=== PATIENT | male | born 1965 | race Caucasian/White ===

== ENCOUNTER 2019-10-01 02:43 | Emergency (ER) | payer OTHER ==
[2019-10-01 02:58] VITALS: BP 148/90; PULSE 94; TEMP 98.9; BMI 22.9
[2019-10-01] MEDS ORDERED: chlordiazePOXIDE HCL 25 MG CAPSULE PO ONE (03:01)
[2019-10-01] MEDS ORDERED: chlordiazePOXIDE HCL 25 MG CAPSULE ONE (03:05)
[2019-10-01 04:09] LABS: HEMATOCRIT 32.7 % (35.4-49); HEMOGLOBIN 11.1 GM/dL (11.7-16.9); MCH 35.8 pg (25.7-33.7); MCHC 34.1 g/dl (32.0-35.9); MEAN PLT VOLUME 8.1 fl (7.5-11.1); PLATELET COUNT 255 K/MM3 (134-434); RBC 3.11 M/mm3 (4.00-5.60); WHITE BLOOD COUNT 5.9 K/mm3 (4.0-10.0)
--- NOTE | 2019-10-01 04:45 | PDOC ---
Documentation entered by Juan Guzman SCRIBE, acting as scribe for Alexandria Goldsmith DO. Alexandria Goldsmith DO: This documentation has been prepared by the Megan baird Nirvannie, SCRIBE, under my direction and personally reviewed by me in its entirety. I confirm that the documentation accurately reflects all work, treatment, procedures, and medical decision making performed by me. History of Present Illness - General Stated Complaint: TRACH PROBLEM Time Seen by Provider: 10/01/19 02:48 History Source: Patient - History of Present Illness Initial Comments: 10/01/19 03:23 The patient is a 53 year old male, with a significant past medical history of unknown cancer (s/p tracheostomy), alcohol abuse, Hepatitis C, depression, bipolar disorder, who presents to the emergency department with 3 days of a dislodged tracheostomy tube. As per patient, he accidentally coughed up his tracheostomy tube 3 days ago. Patient presented to detox prior to his arrival but, was found to have a dislodged trach, prompting his arrival to the ED. Patients last drink was earlier today. As per patients oncologist office, while his tracheostomy is in place he requires significant suctioning. He denies any recent fevers, chills, headache or dizziness. He denies any recent chest pain. History is limited secondary to the patients difficulty speaking. Allergies: fish derived, iodine, shellfish derived, seafood Past History - Past Medical History Allergies/Adverse Reactions: Allergies Allergy/AdvReac Type Severity Reaction Status Date / Time fish derived Allergy Severe Difficulty Verified 10/01/19 02:53 Breathing iodine Allergy Severe Difficulty Verified 10/01/19 02:53 Breathing shellfish derived Allergy Severe Difficulty Verified 10/01/19 02:53 Breathing seafood Allergy Severe Difficulty Uncoded 10/01/19 02:53 Breathing Home Medications: Ambulatory Orders Lamotrigine [Lamictal] 100 mg PO BID #60 tablet 09/08/13 Albuterol Sulfate Inhaler - [Ventolin HFA Inhaler -] 2 inh IH Q4H PRN #1 inh 01/17 Budesonide/Formeterol Fumarate [SYMBICORT 80/4.5mcg -] 2 inh IH BID #0 inhaler 09/11/13 Quetiapine Fumarate [Seroquel -] 300 mg PO HS #0 tablet 09/11/13 Lamotrigine [LaMICtal -] 100 mg PO BID #60 tablet 03/21/14 Quetiapine Fumarate [Seroquel -] 300 mg PO HS #30 tablet 03/21/14 Zolpidem Tartrate [Ambien] 10 mg PO HS #30 tablet 03/23/14 Nicotine Inhaler [Nicotrol Inhaler -] 10 mg IH Q2H PRN #30 cartridge 03/24/14 Anemia: No Asthma: No Cancer: No Cardiac Disorders: No CVA: No COPD: No CHF: No Dementia: No Diabetes: No GI Disorders: No Disorders: No HTN: No Hypercholesterolemia: No Kidney Stones: No Liver Disease: Yes Seizures: No Thyroid Disease: No - Surgical History Abdominal Surgery: No Appendectomy: No Cardiac Surgery: No Cholecystectomy: No Lung Surgery: No Neurologic Surgery: No Orthopedic Surgery: No - Reproductive History Testicular Surgery: No - Psycho Social/Smoking Cessation Hx Smoking History: Current every day smoker Have you smoked in the past 12 months: Yes Number of Cigarettes Smoked Daily: 20 Cigars Per Day: 0 'Breaking Loose' booklet given: 09/07/13 Hx Alcohol Use: Yes (beer/vodka) Drug/Substance Use Hx: Yes (cocaine) Substance Use Type: Alcohol, Cocaine Hx Substance Use Treatment: Yes ([facility] 09/2013) Review of Systems - Review of Systems Able to Perform ROS?: Yes Comments:: 10/01/19 03:24 GENERAL/CONSTITUTIONAL: No fever or chills. No weakness. HEAD, EYES, EARS, NOSE AND THROAT: +Dislodged tracheostomy tube. No change in vision. No ear pain or discharge. No sore throat. GASTROINTESTINAL: No nausea, vomiting, diarrhea or constipation. GENITOURINARY: No dysuria, frequency, or change in urination. CARDIOVASCULAR: No chest pain or shortness of breath. RESPIRATORY: No cough, wheezing, or hemoptysis. MUSCULOSKELETAL: No joint or muscle swelling or pain. No neck or back pain. SKIN: No rash NEUROLOGIC: No headache, vertigo, loss of consciousness, or change in strength/ sensation. ENDOCRINE: No increased thirst. No abnormal weight change. HEMATOLOGIC/LYMPHATIC: No anemia, easy bleeding, or history of blood clots. ALLERGIC/IMMUNOLOGIC: No hives or skin allergy. All Other Systems: Reviewed and Negative *Physical Exam - Vital Signs Last Vital Signs Temp Pulse Resp BP Pulse Ox 98.9 F 94 H 18 148/90 95 10/01/19 02:53 10/01/19 02:53 10/01/19 02:53 10/01/19 02:53 10/01/19 02:53 - Physical Exam 10/01/19 03:24 GENERAL: Awake, in no acute distress HEAD: No signs of trauma EYES: PERRLA, EOMI, sclera anicteric, conjunctiva clear, visual acuity grossly intact ENT: +Open tracheostomy site with fixed secretions. No stridor. NECK: Normal ROM, supple, no lymphadenopathy or JVD. LUNGS: Breath sounds equal, clear to auscultation bilaterally. No wheezes, and no crackles. Normal work of breathing. HEART: Regular rate and rhythm, normal S1 and S2, no murmurs, rubs or gallops ABDOMEN: Soft, nontender, normoactive bowel sounds. No guarding. Non- distended. : Deferred. BACK: No midline tenderness. EXTREMITIES: Normal range of motion, no edema. No clubbing or cyanosis. No erythema, or tenderness NEUROLOGICAL: Alert, and oriented x4, Nonfocal. SKIN: Warm, Dry, normal turgor, no rashes or lesions noted. ED Treatment Course - LABORATORY CBC & Chemistry Diagram: 10/01/19 03:40 10/01/19 03:40 - ADDITIONAL ORDERS Additional order review: Laboratory Results 10/01/19 03:40 Sodium Cancelled Potassium Cancelled Chloride Cancelled Carbon Dioxide Cancelled Anion Gap Cancelled BUN Cancelled Creatinine Cancelled Est GFR (CKD-EPI)AfAm Cancelled Est GFR (CKD-EPI)NonAf Cancelled Random Glucose Cancelled Calcium Cancelled Total Bilirubin Cancelled AST Cancelled ALT Cancelled Alkaline Phosphatase Cancelled Total Protein Cancelled Albumin Cancelled 10/01/19 03:40 RBC 3.11 L MCV 105.0 H MCHC 34.1 RDW 14.0 MPV 8.1 - RADIOLOGY Radiology Studies Ordered: Category Date Time Status CHEST X-RAY PORTABLE* [RAD] Stat Radiology 10/01/19 03:12 Taken - Medications Given in the ED: ED Medications Discontinued Medications Generic Name Dose Route Start Last Admin Trade Name Freq PRN Reason Stop Dose Admin Chlordiazepoxide HCl 25 mg 10/01/19 03:01 10/01/19 03:58 Librium - PO 10/01/19 03:02 25 mg ONCE ONE Administration Medical Decision Making - Critical Care Time Total Critical Care Time (minutes): 60 Critical Care Statement: The care of this patient involved high complexity decision making to prevent further life threatening deterioration of the patient 's condition and/or to evaluate & treat vital organ system(s) failure or risk of failure. - Medical Decision Making 10/01/19 04:40 53-year-old male sent for increased secretions from his tracheal stoma sites Patient's head and neck surgeon at [facility], Dr. Núñez' s team, head and neck surgery/oncology has accepted the patient for transfer to the emergency department for further evaluation Patient was advised that we do not provide this service at this hospital and he will be transferred for continuity of care and specialty consultation Trach collar applied, current )2 sat 99%, he has required suctioning multiple times while in the emergency department Librium 25 mg given prior to transfer Chest x-ray shows some nonspecific mild increased markings bilaterally with no focal consolidation Awaiting ALS transport to the emergency department 10/01/19 04:44 Discharge - Discharge Information Problems reviewed: Yes Clinical Impression/Diagnosis: Increased tracheal secretions, Status post laryngectomy Condition: Guarded - Admission No - Follow up/Referral Referrals: Jaz Cerna MD [Primary Care Provider] - - Patient Discharge Instructions - Post Discharge Activity - Transfer to Acute Care Facility Receiving [facility]: [facility]
[2019-10-01 05:05] LABS: ALK PHOS 84 U/L (45-117); ANION GAP 7 MMOL/L (8-16); BILIRUBIN,TOTAL 0.6 mg/dL (0.2-1); BLOOD UREA NITROGEN 10.9 mg/dL (7-18); CALCIUM 7.9 mg/dL (8.5-10.1); CHLORIDE 102 mmol/L (98-107); CO2 26 mmol/L (21-32); CREATININE 0.6 mg/dL (0.55-1.3); GLUCOSE,RANDOM 97 mg/dL (74-106); POTASSIUM 5.1 mmol/L (3.5-5.1); SGOT/AST 87 U/L (15-37); SGPT/ALT 45 U/L (13-61); SODIUM 135 mmol/L (136-145)
--- NOTE | 2019-10-01 16:37 | EKG ---
Test Reason : Blood Pressure : / mmHG Vent. Rate : 084 BPM Atrial Rate : 084 BPM P-R Int : 162 ms QRS Dur : 092 ms QT Int : 374 ms P-R-T Axes : 059 041 048 degrees QTc Int : 441 ms NORMAL SINUS RHYTHM MINIMAL VOLTAGE CRITERIA FOR LVH, MAY BE NORMAL VARIANT BORDERLINE ECG Confirmed by MD KEVEN, MIKALA ([id number]) on 10/01/2019 4:37:14 PM Referred By: Confirmed By:MIKALA BACA MD
== END 2019-10-01 06:00 | disposition short-term general hospital (02) ==
LOC: JER 02:43
DX: J95.09 Other tracheostomy complication (principal); Z90.02 Acquired absence of larynx; B19.20 Unspecified viral hepatitis C without hepatic coma; Z85.9 Personal history of malignant neoplasm, unspecified; F31.9 Bipolar disorder, unspecified; Z91.013 Allergy to seafood; Z88.8 Allergy status to other drugs, medicaments and biological substances; K76.9 Liver disease, unspecified
CPT/HCPCS: 36415; 71045-TC-FY; 80053; 80307; 84484; 85027; 93005; 93010; 99291